=== PATIENT | female | born 1990 | race Caucasian/White ===

== ENCOUNTER 2020-05-28 10:21 | Emergency (ER) | payer BC ==
[~2020-05-28] VITALS: Ht 165.1 cm; Wt 56.7 kg
--- NOTE | 2020-05-28 10:25 | NUR ---
Patient to ER bed 06 to gown for evaluation. Side rails up.
[2020-05-28 10:26] VITALS: BP_SYST 93
--- NOTE | 2020-05-28 10:30 | NUR ---
Pt bib ambulance from home with c/o abdominal pain, cramping and nausea. Reports vaginal bleeding that started this morning. V/S stable, pt is afebrile. Currently resting in bed, will continue to monitor.
--- NOTE | 2020-05-28 10:43 | NUR ---
ER Dr. Pascual at bedside examining patient.
[2020-05-28] MEDS ORDERED: KETOROLAC TROMETHAMINE 30 MG VIAL IM ONE (11:00)
[2020-05-28] MEDS ORDERED: MAG-AL HYDROX/SIMETH 30 ML UDC PO ONE (11:00)
[2020-05-28] MEDS ORDERED: DIPHENHYDRAMINE HCL 25 MG CAPSULE PO ONE (11:00)
--- NOTE | 2020-05-28 11:00 | NUR ---
Pt declined Toradol at this time. MD francois
[2020-05-28 11:54] VITALS: BP_SYST 93
--- NOTE | 2020-05-28 11:55 | NUR ---
Patient given written and verbal discharge instructions and verbalizes understanding. ER MD discussed with patient the results and treatment provided. Patient in stable condition. ID arm band removed. Rx of Zofran given. Patient educated on pain management and to follow up with PMD. Pain Scale 0. Opportunity for questions provided and answered. Medication side effect fact sheet provided.
== END 2020-05-28 11:55 | disposition home or self-care (01) ==
LOC: SED 10:21
DX: N93.8 Other specified abnormal uterine and vaginal bleeding (principal); R11.2 Nausea with vomiting, unspecified; R10.9 Unspecified abdominal pain
CPT/HCPCS: 81002; 81025; 99283; J1885; Q0163